=== PATIENT | male | born 1985 | race Caucasian/White ===

== ENCOUNTER 2017-09-14 18:54 | Inpatient (IN) ==
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
[2017-09-14 19:22] LABS: Bilirubin,Urine Negative (Negative); Blood,Urine Negative (Negative); Clarity,Urine Clear (Clear); Color,Urine Yellow (Yellow); Glucose,Urine (UA) Normal (Normal); Ketones,Urine Negative (Negative); Leukocyte Esterase,Urine Negative (Negative); Nitrite,Urine Negative (Negative); Protein,Urine 30 mg/dL (Neg-Trace); Specific Gravity,Urine 1.023 (1.010-1.025); Urobilinogen,Urine Normal (Normal)
[2017-09-14 19:24] LABS: Amphetamine Screen,Urine Negative ng/mL (Cutoff=1000); Bacteria,Urine None Seen per hpf (None-Few); Barbiturate Screen,Urine Negative ng/mL (Cutoff=200); Benzodiazepines Screen,Urine Positive ng/mL (Cutoff=200); Cannabinoid Screen,Urine Positive ng/mL (Cutoff = 50); Cocaine Screen,Urine Negative ng/mL (Cutoff= 300); Hyaline Casts,Urine None Seen per lpf (None-Few); Opiate Screen,Urine Positive ng/mL (Cutoff=300); Phencyclidine Screen,Urine Negative ng/mL (Cutoff=25); RBC,Urine 0-3 per hpf (0-3); Squamous Epithelial Cell,Urine Moderate per lpf (None-Few)
[2017-09-14 19:28] LABS: Basophils # 0.1 K/mcL (0.0-0.2); Basophils % 0.5 %; Eosinophils # 0.1 K/mcL (0.0-0.6); Eosinophils % 0.5 %; Hematocrit 44.4 % (37.5-50.1); Hemoglobin 15.3 g/dL (12.9-16.9); Immature Granulocytes % 0.5 % (0-4); Lymphocytes # 2.6 K/mcL (0.6-4.6); Lymphocytes % 24.4 %; Mean Corpuscular HGB Conc 34.5 g/dL (31.6-35.5); Mean Corpuscular Hemoglobin 29.5 pg (28.0-33.3); Mean Corpuscular Volume 85.5 fL (83.0-100.0); Mean Platelet Volume 8.4 fL (9.4-12.4); Monocytes # 0.8 K/mcL (0.0-1.3); Monocytes % 7.4 %; Neutrophils # 7.2 K/mcL (1.6-8.9); Platelet Count 209 K/mcL (140-400); Red Blood Count 5.19 M/mcL (4.19-5.50); Red Cell Distribution Width 12.6 % (11.5-14.5); Segmented Neutrophils % 66.7 %
[2017-09-14 19:40] LABS: BUN/Creatinine Ratio 11 (6-26); Blood Urea Nitrogen 10 mg/dL (8-26); Calcium 9.4 mg/dL (8.6-10.8); Carbon Dioxide 21 mEq/L (19-29); Chloride 104 mEq/L (98-109); Glucose 99 mg/dL (70-99); Osmolality,Calculated 287 (280-300); Potassium 3.7 mEq/L (3.5-4.5); Sodium 139 mEq/L (136-145); eGFR For African Americans > 60 (> 60); eGFR For Non-African Americans > 60 (> 60)
[2017-09-14 19:41] LABS: Acetaminophen < 1.0 mcg/mL (10-30); Ethanol < 10 mg/dL (0-10); Salicylate < 5.0 mg/dL (15-30)
[2017-09-15] MEDS ORDERED: *HR* LORazepam 1 MG TABLET PO PRN ×2 (01:21→13:30)
[2017-09-15] MEDS ORDERED: Haloperidol Lactate 5 MG/ML VIAL IM PRN (01:21)
[2017-09-15] MEDS ORDERED: MOM Conc 10 ML UD.LIQ PO PRN (01:21)
[2017-09-15] MEDS ORDERED: traZODone 50 MG TABLET PO PRN (01:21)
[2017-09-15] MEDS ORDERED: Acetaminophen 325 MG TABLET PO PRN (01:21)
[2017-09-15] MEDS ORDERED: Mag Hydrox/Al Hydrox/Simeth 30 ML UDC PO PRN (01:21)
[2017-09-15] MEDS ORDERED: *HR* LORazepam 2 MG/ML VIAL IM PRN (01:21)
[2017-09-15] MEDS ORDERED: lamoTRIgine 100 MG TABLET PO SCH (01:30)
[2017-09-15] MEDS: RisperiDAL 3 MG TABLET PO SCH ×2 (02:23→20:15)
[2017-09-15] MEDS: Baclofen 10 MG TABLET PO PRN ×2 (09:14→13:07)
[2017-09-15] MEDS: cloNIDine HCl 0.1 MG TABLET PO PRN ×2 (09:15→13:07)
[2017-09-15] MEDS: Nicotine 21 MG PATCH.TD24 TD SCH (09:15)
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
[2017-09-15] MEDS: hydrOXYzine pamoate 25 MG CAPSULE PO PRN (13:07)
[2017-09-15] MEDS: *HR* LORazepam 1 MG TABLET PO SCH ×2 (15:39→20:15)
[2017-09-15] MEDS: lamoTRIgine 100 MG TABLET PO SCH (20:16)
[2017-09-16] MEDS ORDERED: traZODone 50 MG TABLET PO ONE (00:28)
[2017-09-16] MEDS: Nicotine 21 MG PATCH.TD24 TD SCH (09:01)
[2017-09-16] MEDS: *HR* LORazepam 1 MG TABLET PO SCH ×3 (09:01→20:12)
--- NOTE | 2017-09-16 11:53 | Psychiatry Progress Note ---
Date of Encounter: 09/16/17 Time of Encounter: 11:30 ( ) Subjective Interval history: Patient seen today , case d/w treatment team . I am better than yesterday. states slept ok , states anxious and restless and denies any stomache cramps , n /v. he has not been sleeping well , depression is better but anxiety is high. denies side effects. patient will have bed AT [facility] [place] ON tuesday. Review of Systems Psychiatric: Reports: depression, anxiety, abnormal sleep pattern, suicidal ideation, difficulty concentrating, hopelessness, mood swings Objective: Exam Patient orientation: Yes Person, Yes Time, Yes Place Level of alertness: Alert Patient appearance: Appropriate Behavior: anxious Psychomotor activity: Increased Eye contact: Maintains Eye Contact Mood description: Anxious Affect description: anxious Speech pattern: Normal rate, Coherent Speech volume: Normal Thought process: Intact Thought content: Yes Guilt Judgment: Fair Insight: Full Results - Vital Signs Vital Signs: Temp Pulse Resp BP Pulse Ox 98.1 F 107 14 113/82 96 09/16/17 09:00 09/16/17 09:00 09/16/17 09:00 09/16/17 09:00 09/15/17 00:54 Assessment and Plan (1) Suicidal ideation Current visit: Yes Status: Acute Risks, benefits, side effects, alternatives discussed w/pt: Yes Patient agreeable to treatment: Yes (2) Bipolar 1 disorder, depressed, severe Current visit: Yes Status: Acute Risks, benefits, side effects, alternatives discussed w/pt: Yes Patient agreeable to treatment: Yes (3) Opiate dependence Current visit: Yes Status: Chronic Risks, benefits, side effects, alternatives discussed w/pt: Yes Patient agreeable to treatment: Yes Qualifiers: Substance use status: uncomplicated Qualified Code(s): F11.20 - Opioid dependence, uncomplicated Consult Discharge Plan - Plan Referrals: NONE,PCP [Primary Care Provider] -
[2017-09-16] MEDS: RisperiDAL 3 MG TABLET PO SCH (20:12)
[2017-09-16] MEDS: lamoTRIgine 100 MG TABLET PO SCH (20:13)
[2017-09-16] MEDS: traZODone 50 MG TABLET PO SCH (20:13)
[2017-09-16] MEDS ORDERED: traZODone 50 MG TABLET PO SCH (21:00)
[2017-09-16] MEDS: hydrOXYzine pamoate 25 MG CAPSULE PO PRN (21:46)
--- NOTE | 2017-09-17 08:39 | Psychiatry Progress Note ---
Date of Encounter: 09/17/17 Time of Encounter: 08:32 Subjective Interval history: Patient seen today , case d/w treatment team and has been showing some improvement. Patient moods are better , denies suicidal ideations, slept better. denies any with drawl s/s on taper lorazepam and does not have cravings at present. denies side effects . plan to continue medications and inpatient rehab. Review of Systems Psychiatric: Reports: depression, anxiety, abnormal sleep pattern, suicidal ideation, difficulty concentrating, hopelessness, mood swings Objective: Exam Patient orientation: Yes Person, Yes Time, Yes Place Level of alertness: Alert Patient appearance: Appropriate Behavior: calm, cooperative Psychomotor activity: Normal Eye contact: Maintains Eye Contact Mood description: Anxious Affect description: congruent with mood Speech pattern: Coherent, Non-verbal Thought process: Intact Thought content: Yes Intact, Yes Guilt Judgment: Limited Insight: Partial Results - Vital Signs Vital Signs: Temp Pulse Resp BP Pulse Ox 98.2 F 101 16 121/86 96 09/16/17 20:39 09/16/17 20:39 09/16/17 20:39 09/16/17 20:39 09/15/17 00:54 Assessment and Plan (1) Suicidal ideation Current visit: Yes Status: Acute Risks, benefits, side effects, alternatives discussed w/pt: Yes Patient agreeable to treatment: Yes (2) Bipolar 1 disorder, depressed, severe Current visit: Yes Status: Acute Risks, benefits, side effects, alternatives discussed w/pt: Yes Patient agreeable to treatment: Yes (3) Opiate dependence Current visit: Yes Status: Chronic Risks, benefits, side effects, alternatives discussed w/pt: Yes Patient agreeable to treatment: Yes Qualifiers: Substance use status: uncomplicated Qualified Code(s): F11.20 - Opioid dependence, uncomplicated Consult Discharge Plan - Plan Referrals: [facility] [Outside] (You are going into the substance abuse treatment program at the [facility] on discharge from the hospital. You will also see Cuca for medication management on 09/26/2017 at 10:00am, and Quentin social contact worker, on 09/26/2017 at 11:00am.)
[2017-09-17] MEDS: Nicotine 21 MG PATCH.TD24 TD SCH (10:02)
[2017-09-17] MEDS: *HR* LORazepam 1 MG TABLET PO SCH ×2 (10:03→20:07)
[2017-09-17] MEDS: hydrOXYzine pamoate 25 MG CAPSULE PO PRN (12:45)
[2017-09-17] MEDS: Gabapentin 300 MG CAPSULE PO SCH ×2 (14:47→20:08)
[2017-09-17] MEDS: RisperiDAL 3 MG TABLET PO SCH (20:07)
[2017-09-17] MEDS: lamoTRIgine 100 MG TABLET PO SCH (20:08)
[2017-09-17] MEDS: traZODone 50 MG TABLET PO SCH (20:08)
[2017-09-18] MEDS: *HR* LORazepam 1 MG TABLET PO SCH ×2 (09:06→20:12)
[2017-09-18] MEDS: Nicotine 21 MG PATCH.TD24 TD SCH (09:06)
[2017-09-18] MEDS: Gabapentin 300 MG CAPSULE PO SCH ×3 (09:06→20:13)
[2017-09-18] MEDS: hydrOXYzine pamoate 25 MG CAPSULE PO PRN (14:01)
[2017-09-18] MEDS ORDERED: hydrOXYzine pamoate 25 MG CAPSULE PO PRN (14:09)
--- NOTE | 2017-09-18 14:37 | Psychiatry Progress Note ---
Date of Encounter: 09/18/17 Time of Encounter: 14:36 Subjective Interval history: Patient seen [facility]. He reports he is feeling better since time of admission but is very anxious. He is requesting to have Ativan for anxiety, states he feels restless. Patient was restarted on Neurontin yesterday. He slept 9.25 hours, he reports he did not sleep well. Appetite has been good. He denies SI, HI, ruelas. Review of Systems Psychiatric: Reports: anxiety, abnormal sleep pattern. Denies: suicidal ideation, difficulty concentrating, hopelessness Objective: Exam Level of alertness: Alert Patient appearance: Appropriate Behavior: cooperative Psychomotor activity: Normal Eye contact: Maintains Eye Contact Mood description: Anxious Affect description: constricted Speech pattern: Normal rate, Normal rhythm Speech volume: Normal Thought process: Intact Thought content: Yes Intact Results - Vital Signs Vital Signs: Temp Pulse Resp BP Pulse Ox 97.8 F 93 18 104/78 96 09/18/17 08:41 09/18/17 08:41 09/18/17 08:41 09/18/17 08:41 09/15/17 00:54 Assessment and Plan (1) Opiate dependence Current visit: Yes Status: Chronic Risks, benefits, side effects, alternatives discussed w/pt: Yes Patient agreeable to treatment: Yes Qualifiers: Substance use status: uncomplicated Qualified Code(s): F11.20 - Opioid dependence, uncomplicated (2) Bipolar 1 disorder, depressed, severe Current visit: Yes Status: Acute Risks, benefits, side effects, alternatives discussed w/pt: Yes Patient agreeable to treatment: Yes (3) Suicidal ideation Current visit: Yes Status: Acute Risks, benefits, side effects, alternatives discussed w/pt: Yes Patient agreeable to treatment: Yes Consult Discharge Plan - Plan Referrals: [facility] [Outside] (You are going into the substance abuse treatment program at the [facility] on discharge from the hospital. You will also see Cuca for medication management on 09/26/2017 at 10:00am, and Quentin health care social worker, on 09/26/2017 at 11:00am.)
[2017-09-18] MEDS: *HR* LORazepam 1 MG TABLET PO PRN ×2 (14:52→20:13)
[2017-09-18] MEDS: traZODone 50 MG TABLET PO SCH (20:13)
[2017-09-18] MEDS: RisperiDAL 3 MG TABLET PO SCH (20:13)
[2017-09-18] MEDS: lamoTRIgine 100 MG TABLET PO SCH (20:13)
[2017-09-19] MEDS: Nicotine 21 MG PATCH.TD24 TD SCH (08:22)
[2017-09-19] MEDS: Gabapentin 300 MG CAPSULE PO SCH (08:22)
[2017-09-19] MEDS ORDERED: *HR* LORazepam 1 MG TABLET PO SCH (09:00)
[2017-09-19 09:04] VITALS: BP 99/71
--- NOTE | 2017-09-19 09:53 | Psychiatry Progress Note ---
Date of Encounter: 09/19/17 Time of Encounter: 09:51 Review of Systems Psychiatric: Reports: anxiety, abnormal sleep pattern. Denies: suicidal ideation, difficulty concentrating, hopelessness Results - Vital Signs Vital Signs: Temp Pulse Resp BP Pulse Ox 97.7 F 88 14 99/71 96 09/19/17 09:00 09/19/17 09:00 09/19/17 09:00 09/19/17 09:00 09/15/17 00:54 Assessment and Plan (1) Suicidal ideation Current visit: Yes Status: Acute Risks, benefits, side effects, alternatives discussed w/pt: Yes Patient agreeable to treatment: Yes Consult Discharge Plan - Plan Referrals: [facility] [Outside] (You are going into the substance abuse treatment program at the [facility] on discharge from the hospital. You will also see Cuca for medication management on 09/26/2017 at 10:00am, and Quentin rn social work, on 09/26/2017 at 11:00am.)
--- NOTE | 2017-09-19 10:16 | Discharge Summary ---
Date of Encounter: 09/19/17 Time of Encounter: 10:15 Diagnosis - Discharge Diagnosis (1) Suicidal ideation Priority: Secondary Status: Acute (2) PTSD (post-traumatic stress disorder) Priority: Secondary Status: Acute (3) Opioid dependence, uncomplicated Priority: Secondary Status: Acute (4) Bipolar I disorder with depression, severe Priority: Primary Status: Acute Medications - Discharge Medications Gabapentin [Neurontin] 300 mg PO TID capsule 09/19/17 [Rx] Paroxetine [Paxil] 20 mg PO DAILY tablet 09/19/17 [Rx] hydrOXYzine pamoate [HydrOXYzine Pamoate] 50 mg PO TID PRN capsule 09/19/17 [Rx ] lamoTRIgine [Lamictal] 150 mg PO HS tablet 09/19/17 [Rx] risperiDONE [RisperDAL] 3 mg PO HS tablet 09/19/17 [Rx] traZODone [TraZODone] 50 mg PO HS tablet 09/19/17 [Rx] 3 Allergy/AdvReac Type Severity Reaction Status Date / Time No Known Allergies Allergy Verified 09/14/17 18:57 Provider Date of admission: 09/15/17 01:19 Primary care physician: PCP NONE Discharging clinician: Karsten Ricks Assessment and Plan - Follow up Plan Follow up with: [facility] [Outside] (You are going into the substance abuse treatment program at the [facility] on discharge from the hospital. You will also see Cuca for medication management on 09/26/2017 at 10:00am, and Quentin social economist, on 09/26/2017 at 11:00am.) Functional capacity at discharge: independent ambulation Overall status at discharge: Stable Disposition: Transfer Merged With [facility] Hospital Course Hospital course: Mr. Smith is a 31 year old male The patient was admitted on September 15. He had an docile ideation on admission. He identified stressors including the loss of daughter loss of his home family conflict. He had suicidal ideation with a plan to shoot himself. The patient is an 80% service connected . He was accepted into the [facility] program at the [facility]. He had a history of substance abuse. He had been on Suboxone. However he would like to switch over to give a trial of naltrexone. Time spent discussing smoking cessation with patient: 3 to 10 minutes Does patient wish to continue nicotine replacement upon disc: No - Time Spent with Patient Total time spent providing and/or coordinating discharge services: Less than 30 minutes Quality - Multiple Antipsychotics Patient discharged on 2 or more antipsychotic medications: No - Justification Documentation of: No documentation of justification Procedures - Procedures Procedures: Medication Management Mental Status Exam - Mental Status Exam Level of alertness: Alert Patient appearance: Appropriate Behavior: calm, cooperative Psychomotor activity: Normal Eye contact: Maintains Eye Contact Mood description: Euthymic/stable Affect description: congruent with mood, full range Speech pattern: Normal rate, Normal rhythm, Normal tone Speech Volume: Normal Thought process: Linear, Goal Oriented Thought Content: No Suicidal ideation, No Homicidal ideation, No Overt delusions Judgment: Fair Insight: Partial
== END 2017-09-19 12:05 | DRG 885 ==
LOC: EMEROO 18:54 → 1ANU 09-15 01:19 → SUATTDRO 09-15 01:19 → 1ANU 09-15 01:23
PROVIDERS: ADMIT Psychiatry & Neurology Psychiatry; ATTEND Psychiatry & Neurology Forensic Psychiatry